=== PATIENT | male | born 1955 | race Hispanic/Latino ===

== ENCOUNTER 2018-07-29 14:46 | Emergency (ER) | payer OTHER ==
[~2018-07-29] VITALS: Ht 167.6 cm; Wt 88.5 kg
[2018-07-29] MEDS ORDERED: ACETAMINOPHEN/CODEINE 300MG - 30MG TAB PO NR (15:00)
--- NOTE | 2018-07-29 15:22 | NUR ---
RADIOLOGY AT BEDSIDE FOR IMAGING AT THIS TIME
--- NOTE | 2018-07-29 15:42 | Diagnostic Imaging Report ---
Exam: Right forearm 2 views, right wrist, 3 views History: Fall, pain Comparison: None. Findings: Acute, comminuted intra-articular fracture of the distal radius, with slight dorsal displacement of the distal fracture fragment. Appropriate alignment between the distal radius, lunate, and capitate is maintained on the lateral radiograph. The distal ulna is intact. Mild positive ulnar variance. Subchondral cystic changes of the medial aspect of the base of the lunate. Scaphoid is intact. Proximal radius and ulna are intact. Soft tissue swelling about the wrist. Impression: Acute, comminuted and slightly dorsally displaced intra-articular distal radial fracture. 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 Signed by: Dr. Jameel Valdez M.D. on 07/29/2018 3:38 PM
[2018-07-29 17:22] VITALS: BP 117/73
== END 2018-07-29 17:40 | disposition home or self-care (01) ==
LOC: ER 14:46
DX: Z47.89 Encounter for other orthopedic aftercare (principal); M79.631 Pain in right forearm
CPT/HCPCS: 99284